=== PATIENT | female | born 1960 | race Two or more races ===

== ENCOUNTER 2025-01-31 08:25 | Day surgery (SDC) | payer OTHER ==
[2025-01-22 10:05] VITALS: BP 170/80
[2025-01-22 10:39] LABS: BASO % 0.6 % (0.1-1.2); EOS # 0.14 (0.04-0.54); EOS % 1.7 % (0.7-7.0); LYMPH # 1.80 (1.18-3.74); LYMPH % 21.9 % (19.3-53.1); MEAN PLATELET VOLUME 10.00 fl (9.4-12.4); MONO # 0.56 (0.24-0.82); MONO % 6.8 % (4.7-12.5); NEUT # 5.64 (1.56-6.13); NEUT % 68.8 % (34.0-71.1); RED CELL DISTRIBUTION WIDTH 13.5 % (11.6-14.4)
[2025-01-22 11:17] LABS: ALT/SGPT 27.0 U/L (12-78); AST/SGOT 16.0 U/L (15-37); BILIRUBIN TOTAL 0.7 mg/dL (0.3-1.2); BUN CREA RATIO 17.0 (7.0-25.0); CREATININE SERUM 0.66 mg/dL (0.55-1.02); GFR 89.6; GLOBULINA 2.9 G/DL (2.4-3.5); GLUCOSE FASTING 86.0 mg/dL (65-100); OSMOLALITY SERUM 287.0 MOSM/KG (275-295)
[2025-01-22 11:29] LABS: INR 0.96
[~2025-01-31] VITALS: Ht 160 cm; Wt 74.8 kg
[~2025-01-31 08:25] MED LIST: COZAAR50 MG PO; ECOTRIN81 MG PO; LIPITOR20 MG; TOPROL XL25 M1 PO
[2025-01-31] MEDS ORDERED: ENALAPRILAT DIHYDRATE 1.25 MG/ML VIAL IV ONE (12:55)
== END 2025-01-31 13:45 | disposition home or self-care (01) ==
LOC: CIR.AMB 08:25
PROVIDERS: ATTEND Internal Medicine
DX: D37.5 Neoplasm of uncertain behavior of rectum (principal)

== ENCOUNTER 2025-03-28 07:00 | Day surgery (SDC) | payer OTHER ==
[2025-03-28] MEDS ORDERED: fentaNYL CITRATE 50 MCG/ML AMPUL IV PUSH ONE (13:15)
[2025-03-28] MEDS ORDERED: MIDAZOLAM HCL 2 MG/2 ML VIAL IV ONE (13:15)
[2025-03-28] MEDS ORDERED: DIPHENHYDRAMINE HCL 50 MG/ML VIAL 1ML IV ONE (13:15)
== END 2025-03-28 14:30 | disposition home or self-care (01) ==
LOC: AMB-ENDOS 07:00
PROVIDERS: ATTEND Internal Medicine
DX: C7A.026 Malignant carcinoid tumor of the rectum (principal); D12.3 Benign neoplasm of transverse colon; D12.2 Benign neoplasm of ascending colon; K57.30 Diverticulosis of large intestine without perforation or abscess without bleeding; K63.5 Polyp of colon